=== PATIENT | female | born 1960 | race Caucasian/White ===

== ENCOUNTER → 2016-06-09 | Outpatient (CLI) | payer SELFPAY | END | disposition home or self-care (01) | LOC: RAD 14:08 | DX: R07.2 Precordial pain (principal) | CPT/HCPCS: 71275 ==

== ENCOUNTER 2016-09-21 14:34 | Emergency (ER) | payer BC ==
[~2016-09-21] VITALS: Ht 162.6 cm; Wt 62.0 kg
[2016-09-21] MEDS ORDERED: ZANTAC150 MG PO (15:07)
[2016-09-21 15:41] LABS: EOSINOPHIL (%) 0.9 % (0-5); EOSINOPHIL COUNT 0.1 K/uL (0-0.3); HEMATOCRIT 42.5 % (36.0-46.0); IMMATURE GRANULOCYTE (%) 0.3 % (0.0-0.7); INSTRUMENT ABS NEUTROPHIL CT 4.7 K/uL; LYMPHOCYTE COUNT 1.5 K/uL (1.0-2.8); MCH 28.8 PG (29.0-34.0); MCHC 32.5 G/DL (30.0-36.0); MCV 88.7 FL (83-99); MEAN PLAT.VOLUME 9.7 uM^3 (9.5-12.4); MONOCYTE (%) 7.2 % (3-12); MONOCYTE COUNT 0.5 K/uL (0-0.8); NEUTROPHIL (%) 69.4 % (45-76); NEUTROPHIL COUNT 4.7 K/uL (1.8-6.4); PLATELET COUNT 242 K/uL (156-360); RBC DIS.WIDTH-CV 12.4 % (11.8-14.6); RBC DIS.WIDTH-SD 40.7 % (39-53); RED BLOOD COUNT 4.79 M/uL (3.80-5.20); WHITE BLOOD COUNT 6.7 K/uL (4.1-10.2)
[2016-09-21 15:50] LABS: CHLORIDE 109 mEq/L (99-109); POTASSIUM 3.7 mEq/L (3.7-5.4); SODIUM 142 mEq/L (136-147)
[2016-09-21 15:52] LABS: GLUCOSE 89 mg/dL (70-99)
[2016-09-21 15:53] LABS: ANION GAP 9 MEQ/L (2-14)
[2016-09-21 15:54] LABS: PTT 26.2 (25-32); TOTAL BILIRUBIN 0.5 mg/dL (0.0-1.0)
[2016-09-21 15:55] LABS: ALKALINE PHOSPHATASE 67 IU/L (3-129)
[2016-09-21 15:56] LABS: GFR ESTIMATE (CALCULATED) > 59 mL/min/
[2016-09-21 15:57] LABS: UREA NITROGEN (BUN) 14 mg/dL (9-23)
[2016-09-21 17:33] VITALS: BP 140/85
== END 2016-09-21 17:34 | disposition home or self-care (01) ==
LOC: EME 14:34
PROVIDERS: Nurse Practitioner Family
DX: S50.02XA Contusion of left elbow, initial encounter (principal); W22.09XA Striking against other stationary object, initial encounter
CPT/HCPCS: 80053; 85025; 85610; 85730; 99281; 99283

== ENCOUNTER → 2018-01-08 | Outpatient (CLI) | payer BC ==
[~2018-01-08] VITALS: Ht 163.8 cm; Wt 59.9 kg
[~2018-01-08] MED LIST: ZANTAC150 MG PO
== END | disposition home or self-care (01) ==
LOC: AMB 06:58
PROC: 0DBM8ZX Excision of Descending Colon, Via Natural or Artificial Opening Endoscopic, Diagnostic (ICD-10-PCS; principal; 2018-01-08)
DX: Z12.11 Encounter for screening for malignant neoplasm of colon (principal); D12.5 Benign neoplasm of sigmoid colon; Z80.0 Family history of malignant neoplasm of digestive organs; K44.9 Diaphragmatic hernia without obstruction or gangrene; K21.9 Gastro-esophageal reflux disease without esophagitis; E04.2 Nontoxic multinodular goiter; J30.9 Allergic rhinitis, unspecified; Z82.49 Family history of ischemic heart disease and other diseases of the circulatory system; Z82.0 Family history of epilepsy and other diseases of the nervous system; Z88.0 Allergy status to penicillin
CPT/HCPCS: 88305